=== PATIENT | female | born 1950 | race Asian ===

== ENCOUNTER → 2019-08-27 | Outpatient (REF) | payer MEDICAID ==
[2019-08-27 12:48] LABS: BASO % 0.8 % (0.0-1.0); EOS # 0.1 10^3/uL (0.0-0.5); EOS % 1.9 % (0.0-3.0); HEMOGLOBIN 12.1 g/dl (12.0-15.5); LYMPH # 1.8 10^3/uL (1.5-5.0); LYMPH % 48.1 % (24.0-44.0); MEAN CORPUSCULAR HEMOGLOBIN 31.8 pg (27.0-33.0); MEAN CORPUSCULAR HGB CONC 31.8 g/dl (32.0-36.5); MEAN CORPUSCULAR VOLUME 99.7 fl (80.0-96.0); MONO # 0.2 10^3/uL (0.0-0.8); MONO % 5.5 % (0.0-5.0); NEUTROPHILS # 1.6 10^3/uL (1.5-8.5); NEUTROPHILS % 43.4 % (36.0-66.0); PLATELET COUNT, AUTOMATED 130 10^3/uL (150-450); RED BLOOD COUNT 3.81 10^6/uL (4.00-5.40); WHITE BLOOD COUNT 3.6 10^3/uL (4.0-10.0)
[2019-08-27 13:00] LABS: ALT/SGPT 27 U/L (12-78); BILIRUBIN,TOTAL 0.5 MG/DL (0.2-1.0); BLOOD UREA NITROGEN 19 MG/DL (7-18); CALCIUM LEVEL 9.1 MG/DL (8.8-10.2); CARBON DIOXIDE LEVEL 31 MEQ/L (21-32); CHLORIDE LEVEL 109 MEQ/L (98-107); CHOLESTEROL LEVEL 240 MG/DL (<200); CHOLESTEROL RISK RATIO 2.727 (<5); CREATININE FOR GFR 0.86 MG/DL (0.55-1.30); FREE T4 0.96 NG/DL (0.76-1.46); GLOMERULAR FILTRATION RATE > 60.0 (>39); GLUCOSE, FASTING 82 MG/DL (70-100); HDL CHOLESTEROL 88 MG/DL (>40); LDL CHOLESTEROL 134 MG/DL (<100); NON-HDL-C 152 MG/DL; POTASSIUM SERUM 4.1 MEQ/L (3.5-5.1); SODIUM LEVEL 143 MEQ/L (136-145); TOTAL PROTEIN 7.5 GM/DL (6.4-8.2); TRIGLYCERIDES LEVEL 92 MG/DL (<150)
[2019-08-27 13:04] LABS: TOTAL 25(OH) VITAMIN D 48.9 NG/ML (30.0-100.0)
[2019-08-27 13:46] LABS: HEMOGLOBIN A1c 5.5 %
== END ==
LOC: M LAB REF 12:16
PROVIDERS: ATTEND Family Medicine
DX: Z13.228 Encounter for screening for other metabolic disorders (principal); Z13.820 Encounter for screening for osteoporosis; Z12.39 Encounter for other screening for malignant neoplasm of breast; M25.50 Pain in unspecified joint; R53.83 Other fatigue

== ENCOUNTER → 2019-09-17 | Outpatient (CLI) | payer MEDICAID ==
--- NOTE | 2019-09-17 09:24 | REP ---
Clinical: Given history of gallbladder polyp. Technique: Real time elena scale ultrasound examination using curved array transducer. Findings: Liver demonstrates coarsened echotexture with multiple scattered relatively simple appearing cysts measuring up to 2.0 cm in the left lobe. Pancreas is normal in appearance and echotexture. The right kidney is normal in reniform shape without hydronephrosis and measures 9.8 x 4.8 x 3.4 cm. Visualized abdominal aorta normal. No ascites in the visualized right upper quadrant. Impression: 1. 3.2 mm gallbladder polyp. 2. Findings to suggest hepatocellular disease with scattered primarily simple cysts. A single cyst in the left lobe measuring 2.0 cm demonstrates subtle septation and mural nodularity. 3. Above findings may warrant 6 - 9 month follow-up examination to establish baseline as no prior examinations are available for comparison. Electronically Signed by Tereso Zambrano MD 09/17/2019 09:15 A
== END ==
LOC: M RAD 08:33
PROVIDERS: ATTEND Family Medicine
DX: K82.4 Cholesterolosis of gallbladder (principal); K76.89 Other specified diseases of liver

== ENCOUNTER → 2019-10-03 | Outpatient (CLI) | payer MEDICAID ==
[~2019-10-03] MED LIST: MULTTAB86 PO
--- NOTE | 2019-10-10 13:52 | REPMRS ---
Patient History The patient states she has not had a clinical breast exam in over a year. Patient is postmenopausal. No known family history of cancer. Benign excisional biopsy of the left breast, 1985. No Hormone Replacement Therapy Digital Woman Screen Mammo: October 03, 2019 - Exam #: [id number] Bilateral CC and MLO view(s) were taken. Technologist: Zoya Martell, Technologist Prior study comparison: November 03, 2014, bilateral digital woman screen mammo, performed at [facility]. FINDINGS: The breast tissue is heterogeneously dense. This may lower the sensitivity of mammography. There is a moderate amount of heterogeneously dense fibroglandular tissue which is fairly symmetric. There is no interval development of dominant mass, architectural distortion, or grouped microcalcification typical of malignancy. There has been no change in the appearance of the mammogram from the prior studies. 3-D tomosynthesis shows no additional findings. Assessment: BI-RADS/ACR category 1 mammogram. Negative Mammogram. Recommendation Routine screening mammogram of both breasts in 1 year (for women over age 40). This patient's Lifetime Breast Cancer RIsk is estimated at 5.7 %. This mammogram was interpreted with the aid of an FDA-approved computer-aided dectection system. Electronically Signed By: Jeovany Alford MD 10/10/19 [id number]
--- NOTE | 2019-10-16 13:43 | DEXA ---
AP SPINE L1 - L4 0.773 -3.4 -1.7 LT FEMUR TOTAL 0.924 -0.7 0.8 LT NECK 0.847 -1.4 0.3 RT FEMUR TOTAL 0.859 -1.2 0.3 RT NECK 0.879 -1.1 0.5 TOTAL BODY TOTAL OTHER COMMENTS: There is low bone density of the hips. There is osteoporosis of the spine. The density of the spine has increased 3.8% since 12/11/2014. The density of the left hip has increased 13.1% since 12/11/2014. The density of the right hip has increased 7.9% since 12/11/2014. The increased density of the spine does represent a significant change. The increased density of the left hip does represent a signature change. The increased density of the right hip does represent a signature change. FOLLOW-UP: Recommendation for the next bone density exam: 2 years. GUDELIA
== END ==
LOC: M WHC 14:57 → EDUNIT# 15:00
PROVIDERS: ATTEND Family Medicine
DX: Z12.31 Encounter for screening mammogram for malignant neoplasm of breast (principal); M81.0 Age-related osteoporosis without current pathological fracture; M85.851 Other specified disorders of bone density and structure, right thigh; M85.852 Other specified disorders of bone density and structure, left thigh; M85.88 Other specified disorders of bone density and structure, other site

== ENCOUNTER 2019-10-13 10:09 | Day surgery (SDC) | payer MEDICAID ==
[~2019-10-13] VITALS: Ht 162.6 cm; Wt 49.9 kg
[~2019-10-13 10:09] MED LIST changes: +LIDOCAINE 2% INJ 100 MG/5 ML SDV (FOR ANES.) As Ordered ONE; +NS 1,000 ML IV ONE; +PROPOFOL 200 MG/20 ML VIAL As Ordered ONE
--- NOTE | 2019-10-13 12:44 | ROOR ---
Patient Name: Donovan Smith Procedure Date: 10/13/2019 11:44 AM Date of : 1950 Age: 69 Room: [facility] Gender: Female Note Status: Finalized Procedure: Upper GI endoscopy Indications: Dyspepsia, Dysphagia, Heartburn Providers: Pineda Griffith MD Referring MD: Kong MCKINNON MD Requesting Provider: Medicines: Monitored Anesthesia Care Complications: No immediate complications. Procedure: Pre-Anesthesia Assessment: - Prior to the procedure, a History and Physical was performed, and patient medications and allergies were reviewed. The patient is competent. The risks and benefits of the procedure and the sedation options and risks were discussed with the patient. All questions were answered and informed consent was obtained. Patient identification and proposed procedure were verified by the physician, the nurse and the anesthesiologist in the procedure room. Mental Status Examination: alert and oriented. Airway Examination: normal oropharyngeal airway and neck mobility. Respiratory Examination: clear to auscultation. CV Examination: normal. Prophylactic Antibiotics: The patient does not require prophylactic antibiotics. Prior Anticoagulants: The patient has taken no previous anticoagulant or antiplatelet agents. ASA Grade Assessment: II - A patient with mild systemic disease. After reviewing the risks and benefits, the patient was deemed in satisfactory condition to undergo the procedure. The anesthesia plan was to use monitored anesthesia care (MAC). Immediately prior to administration of medications, the patient was re-assessed for adequacy to receive sedatives. The heart rate, respiratory rate, oxygen saturations, blood pressure, adequacy of pulmonary ventilation, and response to care were monitored throughout the procedure. The physical status of the patient was re-assessed after the procedure. The Endoscope was introduced through the mouth, and advanced to the second part of duodenum. The upper GI endoscopy was accomplished without difficulty. The patient tolerated the procedure well. Findings: The examined esophagus was normal. Biopsies were obtained from the proximal and distal esophagus with cold forceps for histology of suspected eosinophilic esophagitis. Verification of patient identification for the specimen was done by the physician and nurse using the patient's name, date and medical record number. The Z-line was regular and was found 39 cm from the incisors. Scattered mild inflammation characterized by erythema and granularity was found in the gastric antrum and at the pylorus. Biopsies were taken with a cold forceps for Helicobacter pylori testing. The duodenal bulb and second portion of the duodenum were normal. Biopsies for histology were taken with a cold forceps for evaluation of celiac disease. Impression: - Normal esophagus. Biopsied. - Z-line regular, 39 cm from the incisors. - Gastritis. Biopsied. - Normal duodenal bulb and second portion of the duodenum. Biopsied. Recommendation: - Patient has a contact number available for emergencies. The signs and symptoms of potential delayed complications were discussed with the patient. Return to normal activities tomorrow. Written discharge instructions were provided to the patient. - High fiber diet. - Continue present medications. - Follow an antireflux regimen. - Await pathology results. - Telephone GI clinic for pathology results in 2 weeks. - Return to primary care physician. Pineda Griffith MD Pineda Griffith MD 10/13/2019 12:44:29 PM Electronically signed by Pineda Griffith MD Number of Addenda: 0 Note Initiated On: 10/13/2019 11:44 AM Estimated Blood Loss: Estimated blood loss was minimal.
--- NOTE | 2019-10-13 13:07 | ROOR ---
Patient Name: Donovan Smith Procedure Date: 10/13/2019 11:45 AM Date of : 1950 Age: 69 Room: [facility] Gender: Female Note Status: Finalized Procedure: Colonoscopy Indications: Screening for colorectal malignant neoplasm Providers: Pineda Griffith MD Referring MD: Kong MCKINNON MD Requesting Provider: Medicines: Monitored Anesthesia Care Complications: No immediate complications. Procedure: Pre-Anesthesia Assessment: - Prior to the procedure, a History and Physical was performed, and patient medications and allergies were reviewed. The patient is competent. The risks and benefits of the procedure and the sedation options and risks were discussed with the patient. All questions were answered and informed consent was obtained. Patient identification and proposed procedure were verified by the physician, the nurse and the anesthesiologist in the procedure room. Mental Status Examination: alert and oriented. Airway Examination: normal oropharyngeal airway and neck mobility. Respiratory Examination: clear to auscultation. CV Examination: normal. Prophylactic Antibiotics: The patient does not require prophylactic antibiotics. Prior Anticoagulants: The patient has taken no previous anticoagulant or antiplatelet agents. ASA Grade Assessment: II - A patient with mild systemic disease. After reviewing the risks and benefits, the patient was deemed in satisfactory condition to undergo the procedure. The anesthesia plan was to use monitored anesthesia care (MAC). Immediately prior to administration of medications, the patient was re-assessed for adequacy to receive sedatives. The heart rate, respiratory rate, oxygen saturations, blood pressure, adequacy of pulmonary ventilation, and response to care were monitored throughout the procedure. The physical status of the patient was re-assessed after the procedure. The Colonoscope was introduced through the anus and advanced to the terminal ileum, with identification of the appendiceal orifice and IC valve. The colonoscopy was performed without difficulty. The patient tolerated the procedure well. The quality of the bowel preparation was good. The terminal ileum, ileocecal valve, appendiceal orifice, and rectum were photographed. Scope insertion time was 3 minutes. Scope withdrawal time was 9 minutes. The total duration of the procedure was 14 minutes. Findings: The perianal and digital rectal examinations were normal. The terminal ileum appeared normal. Multiple sessile and semi-pedunculated polyps were found in the recto-sigmoid colon, transverse colon, ascending colon and cecum. The polyps were 6 to 12 mm in size. These polyps were removed with a cold snare. Resection and retrieval were complete. Verification of patient identification for the specimen was done by the physician and nurse using the patient's name, date and medical record number. Estimated blood loss was minimal. A few small-mouthed diverticula were found in the sigmoid colon. There was no evidence of diverticular bleeding. Non-bleeding external and internal hemorrhoids were found during retroflexion. The hemorrhoids were medium-sized. Impression: - The examined portion of the ileum was normal. - Multiple 6 to 12 mm polyps at the recto-sigmoid colon, in the transverse colon, in the ascending colon and in the cecum, removed with a cold snare. Resected and retrieved. - Moderate diverticulosis in the sigmoid colon. There was no evidence of diverticular bleeding. - Non-bleeding external and internal hemorrhoids. Recommendation: - Patient has a contact number available for emergencies. The signs and symptoms of potential delayed complications were discussed with the patient. Return to normal activities tomorrow. Written discharge instructions were provided to the patient. - Resume previous diet. - High fiber diet. - Continue present medications. - Await pathology results. - Repeat colonoscopy in 1 year for surveillance of multiple polyps. - Telephone GI clinic for pathology results in 2 weeks. - Return to primary care physician. Pineda Griffith MD Pineda Griffith MD 10/13/2019 1:06:41 PM Electronically signed by Pineda Griffith MD Number of Addenda: 0 Note Initiated On: 10/13/2019 11:45 AM Estimated Blood Loss: Estimated blood loss was minimal.
[2019-10-13 13:13] VITALS: BP 127/60
== END 2019-10-13 13:15 | disposition home or self-care (01) ==
LOC: M OPP 10:09
PROVIDERS: ATTEND Internal Medicine Gastroenterology
DX: Z12.11 Encounter for screening for malignant neoplasm of colon (principal); K64.8 Other hemorrhoids; D12.7 Benign neoplasm of rectosigmoid junction; D12.3 Benign neoplasm of transverse colon; D12.2 Benign neoplasm of ascending colon; D12.0 Benign neoplasm of cecum; K57.30 Diverticulosis of large intestine without perforation or abscess without bleeding; K29.70 Gastritis, unspecified, without bleeding; R12 Heartburn; R13.10 Dysphagia, unspecified

== ENCOUNTER → 2019-12-18 | Outpatient (REF) | payer MEDICAID ==
[~2019-12-18] MED LIST changes: -LIDOCAINE 2% INJ 100 MG/5 ML SDV (FOR ANES.) As Ordered ONE; -NS 1,000 ML IV ONE; -PROPOFOL 200 MG/20 ML VIAL As Ordered ONE
[2019-12-21 14:29] LABS: H PYLORI STOOL ANTIGEN Negative (Negative)
== END ==
LOC: M LAB REF 13:19
PROVIDERS: ATTEND Physician Assistant Medical
DX: B96.81 Helicobacter pylori [H. pylori] as the cause of diseases classified elsewhere (principal)

== ENCOUNTER → 2019-12-23 | Outpatient (CLI) | payer MEDICAID ==
[~2019-12-23] MED LIST changes: +E-Z-GAS II EFFERVESCENT PACKET (SODIUM BICARB./CITRIC ACID/SIMETHICONE) As Ordered ONE; +E-Z-HD 98% w/w 340GM SUSP BTL As Ordered ONE; +E-Z-PAQUE 96% w/w SUSP 176GM BTL As Ordered ONE
--- NOTE | 2019-12-23 18:01 | REP ---
Upper GI Air Contrast with SBFT The procedure was performed by JARVIS Luna, under the the direct supervision of [ ]. The images were reviewed with [ ]. The lace winder film shows no organomegaly or pathological masses. The intestinal gas pattern appears normal. Liquid barium and gas producing crystals were given in the erect position as well as liquid barium in the prone position in order to perform a double contrast upper GI examination. The oral and pharyngeal stages of deglutition demonstrated flash laryngeal penetration. Esophageal transport is efficient and there is no esophagitis, stricture, or mucosal ring noted. However a filling defect is visualized, this could be extrinsic or mural, and could represent a mediastinal mass or an esophageal leiomyoma. The CT of the chest with contrast is recommended. There is no hiatal hernia. Gastroesophageal reflux was visualized to the level of the corinne. The stomach stewart are normally outlined. The rugal folds are smooth and regular. There is no gastritis, neoplasm, or ulcer disease noted. The duodenal stewart are normally outlined. The mucosal folds are smooth and regular. There is no duodenitis, peptic ulcer disease, or neoplasm noted. The visualized portion of the proximal small bowel appears normal in course and caliber. The barium column was followed through the small bowel to the level of the terminal ileum. Small bowel transit time was approximately 90 minutes. During fluoroscopy gentle palpation shows all loops are freely mobile and pliable. There are no fixed or angulated loops. The small bowel mucosal pattern is normal in course and caliber. There is no transition to set suggest a partial small-bowel obstruction. Spot filming of the terminal ileum shows it to be unremarkable. Impression: 1. Flash laryngeal penetration. 2. A filling defect in the esophagus is visualized , this could be extrinsic or mural, and could represent a mediastinal mass or an esophageal leiomyoma. The CT of the chest with contrast is recommended. 3. Gastroesophageal reflux to the level of the corinne. 0.4 minutes of fluoroscopy time was utilized for this procedure. Some fluoroscopic images are performed with last image hold technology. These images require no additional radiation. Reviewed by JARVIS Morse 12/23/2019 12:32 P Electronically Signed by Jaycob Alford MD 12/23/2019 05:51 P
== END ==
LOC: M RAD 09:04
PROVIDERS: ATTEND Surgery
DX: R13.10 Dysphagia, unspecified (principal); R10.84 Generalized abdominal pain; K21.9 Gastro-esophageal reflux disease without esophagitis; K22.8 Other specified diseases of esophagus

== ENCOUNTER → 2020-01-14 | Outpatient (CLI) | payer MEDICAID ==
[~2020-01-14] MED LIST changes: -E-Z-GAS II EFFERVESCENT PACKET (SODIUM BICARB./CITRIC ACID/SIMETHICONE) As Ordered ONE; -E-Z-HD 98% w/w 340GM SUSP BTL As Ordered ONE; -E-Z-PAQUE 96% w/w SUSP 176GM BTL As Ordered ONE
[2020-01-14 12:08] LABS: BLOOD UREA NITROGEN 24 MG/DL (7-18); GLOMERULAR FILTRATION RATE > 60.0 (>39)
== END ==
LOC: M LAB 11:23
PROVIDERS: ATTEND Physician Assistant Medical
DX: R93.3 Abnormal findings on diagnostic imaging of other parts of digestive tract (principal)

== ENCOUNTER → 2020-01-16 | Outpatient (CLI) | payer MEDICAID ==
[~2020-01-16] MED LIST changes: +GASTROGRAFIN SOLUTION 30ML (Q9963) As Ordered ONE; +ISOVUE-370 76% 100ML VIAL (Q9967) As Ordered ONE
--- NOTE | 2020-01-16 15:50 | REP ---
CT chest with contrast: History: Abnormal findings on diagnostic imaging. Comparison upper GI series December 23, 2019 showed evidence of extrinsic indentation of the anterior wall of the esophagus below the level of the corinne, question mural or extrinsic lesion of the esophagus. CT contrast dose: 100 mL of intravenous Isovue [address] findings: There is excellent opacification of the mediastinal vasculature. There is no CT evidence of pulmonary embolism, aortic dissection, or aneurysm. The esophageal stewart are smooth and thin throughout the CT study. Only normal appearing left atrium and left main pulmonary vein abut the anterior wall of the esophagus at the level where the esophagram films showed possible extrinsic defect. There is no evidence of esophageal lesion on CT. There is some vascular calcification of the posterior aortic knob. No pleural or pericardial effusion is seen. There is a small tracheal diverticulum noted incidentally at the level of the thoracic inlet. These are most often asymptomatic. The lung jones are free of infiltrate. No pulmonary mass lesion is seen. No significant pulmonary nodule is appreciated. No bony destructive lesion is seen. Impression: No active cardiopulmonary disease. There is no CT evidence of esophageal lesion. The indentation seen on the esophagram is felt to be due to adjacent normal vascular structures in the mediastinum. Electronically Signed by Jaycob Alford MD 01/16/2020 05:44 P
--- NOTE | 2020-01-16 15:54 | REP ---
CT ABDOMEN WITH IV AND ORAL CONTRAST: HISTORY: Abnormal findings on diagnostic imaging. Comparison upper GI series December 23, 2019. CT CONTRAST DOSE: 100 mL of intravenous Isovue [address] FINDINGS: There is no evidence of pleural effusion or upper abdominal ascites. There are multiple cysts dispersed in the liver. The largest of these measures 1.8 cm in greatest diameter. No focal liver mass lesion is seen. Spleen is unremarkable. The gastroesophageal junction is unremarkable. No abnormality is noted in the stomach. No adrenal lesion is seen. The kidneys enhance symmetrically and appear morphologically intact. Normal caliber aorta is seen. No pancreatic abnormality is observed. Small and large intestinal bowel loops are unremarkable. No bony destructive lesion. IMPRESSION: Multiple small simple cysts in the liver. No acute abnormality. Electronically Signed by Jaycob Alford MD 01/16/2020 05:44 P
== END ==
LOC: M RAD 12:54
PROVIDERS: ATTEND Internal Medicine Gastroenterology
DX: R93.3 Abnormal findings on diagnostic imaging of other parts of digestive tract (principal); K76.89 Other specified diseases of liver
CPT/HCPCS: 71260; 74160; Q9963; Q9967

== ENCOUNTER → 2020-07-23 | Outpatient (REF) | payer MEDICAID ==
[~2020-07-23] MED LIST changes: -GASTROGRAFIN SOLUTION 30ML (Q9963) As Ordered ONE; -ISOVUE-370 76% 100ML VIAL (Q9967) As Ordered ONE
[2020-07-23 18:03] LABS: ALBUMIN 3.9 GM/DL (3.2-5.2); ALT/SGPT 38 U/L (12-78); BILIRUBIN,TOTAL 0.5 MG/DL (0.2-1.0); BLOOD UREA NITROGEN 22 MG/DL (7-18); CALCIUM LEVEL 9.1 MG/DL (8.8-10.2); CARBON DIOXIDE LEVEL 31 MEQ/L (21-32); CHLORIDE LEVEL 105 MEQ/L (98-107); CHOLESTEROL LEVEL 248 MG/DL (<200); CHOLESTEROL RISK RATIO 2.666 (<5); CREATININE FOR GFR 0.89 MG/DL (0.55-1.30); GLOMERULAR FILTRATION RATE > 60.0 (>39); GLUCOSE, FASTING 84 MG/DL (70-100); HDL CHOLESTEROL 93 MG/DL (>40); LDL CHOLESTEROL 140 MG/DL (<100); NON-HDL-C 155 MG/DL; POTASSIUM SERUM 4.4 MEQ/L (3.5-5.1); SODIUM LEVEL 140 MEQ/L (136-145); TOTAL PROTEIN 7.5 GM/DL (6.4-8.2); TRIGLYCERIDES LEVEL 74 MG/DL (<150)
[2020-07-23 18:41] LABS: HEMOGLOBIN A1c 5.5 %
== END ==
LOC: M LAB REF 17:11
PROVIDERS: ATTEND Family Medicine Addiction Medicine
DX: R73.03 Prediabetes (principal); E03.8 Other specified hypothyroidism

== ENCOUNTER → 2020-08-11 | Outpatient (CLI) | payer OTHER ==
--- NOTE | 2020-08-11 10:06 | REP ---
INDICATION: LIVER CYST, POLYP OF GALLBLADDER COMPARISON: Ultrasound dated 09/17/2019, and CT dated 01/16/2020 TECHNIQUE: Real time elena scale ultrasound examination using curved array transducer. FINDINGS: Liver demonstrates 1.4 cm left lobe simple cyst along with 2.1 cm and 1.3 cm right lobe simple cysts essentially corresponding and confirming findings on prior CT. The pancreas is normal in appearance. The gallbladder again demonstrates 3 mm benign appearing polyp without gallstones, wall thickening, or pericholecystic fluid. No biliary ductal dilatation is appreciated and the common bile duct measures 3.0 mm diameter. Right kidney is normal in reniform shape without hydronephrosis and measures 9.8 x 4.4 x 3.0 cm. No ascites in the visualized right upper quadrant. IMPRESSION: 1. Relatively stable hepatic cysts. 2. Stable 3 mm benign-appearing gallbladder polyp. <Electronically signed by Tereso Zambrano > 08/11/20 [id number]
== END ==
LOC: M RAD 09:21
PROVIDERS: ATTEND Family Medicine Addiction Medicine
DX: K82.4 Cholesterolosis of gallbladder (principal); K76.89 Other specified diseases of liver

== ENCOUNTER → 2020-09-30 | Outpatient (CLI) | payer OTHER ==
--- NOTE | 2020-09-30 15:35 | REPMRS ---
Patient History The patient states she has not had a clinical breast exam in over a year. No known family history of cancer. Benign excisional biopsy of the left breast, 1985. No Hormone Replacement Therapy Digital Woman Screen Mammo: September 30, 2020 - Exam #: [id number] Bilateral CC and MLO view(s) were taken. Technologist: Mackenzie Riojas, Technologist Prior study comparison: October 03, 2019, bilateral digital woman screen mammo performed at [facility]. November 03, 2014, bilateral digital woman screen mammo, performed at [facility]. FINDINGS: The breast tissue is extremely dense which could obscure a lesion on mammography. The Volpara volumetric breast density category is: D. There is an extremely dense symmetrical pattern of residual fibroglandular tissue. There has been no change in the appearance of the mammogram from the previous studies. There is no interval development of dominant mass, archetectural distortion, or grouped microcalcifications suggestive of malignancy. 3-D tomosynthesis shows no additional findings. Assessment: BI-RADS/ACR category 1 mammogram. Negative Mammogram. Recommendation Routine screening mammogram of both breasts in 1 year (for women over age 40). This patient's [facility] Lifetime Breast Cancer RIsk is estimated at 5.3 %. This mammogram was interpreted with the aid of an FDA-approved computer-aided dectection system. Electronically Signed By: Jeovany Alford MD 09/30/20 [id number]
== END ==
LOC: M WHC 13:31
PROVIDERS: ATTEND Family Medicine Addiction Medicine
DX: Z12.31 Encounter for screening mammogram for malignant neoplasm of breast (principal)

== ENCOUNTER → 2020-12-05 | Outpatient (CLI) | payer OTHER ==
[~2020-12-05] MED LIST changes: +FOSA70TA PO; +THERTAB52 PO
== END ==
LOC: M LABSMTC 08:11
PROVIDERS: ATTEND Anesthesiology
DX: Z01.812 Encounter for preprocedural laboratory examination (principal); Z20.822 Contact with and (suspected) exposure to COVID-19

== ENCOUNTER 2020-12-10 08:45 | Day surgery (SDC) | payer OTHER ==
[~2020-12-10] VITALS: Ht 154.9 cm; Wt 49.4 kg
[~2020-12-10 08:45] MED LIST changes: +NS 1,000 ML IV ONE
[2020-12-10] MEDS ORDERED: propofoL 200 MG/20 ML VIAL As Ordered ONE (09:18)
[2020-12-10] MEDS ORDERED: fentaNYL 100 MCG/2 ML INJECTION (J3010) As Ordered ONE (09:18)
[2020-12-10] MEDS ORDERED: LIDOCAINE 2% 100MG/5ML SDV (FOR ANES.) As Ordered ONE (09:19)
[2020-12-10] MEDS ORDERED: ePHEDrine SULFATE 25 MG/5 ML(5MG/ML) SYRINGE As Ordered ONE (10:45)
--- NOTE | 2020-12-10 11:38 | ROOR ---
Patient Name: Donovan Smith Procedure Date: 12/10/2020 10:31 AM Date of : 1950 Age: 70 Room: [facility] Gender: Female Note Status: Finalized Procedure: Upper GI endoscopy Indications: Dyspepsia, Previously treated for Helicobacter pylori Providers: Pineda Griffith MD Referring MD: Kong MCKINNON MD Requesting Provider: Medicines: Monitored Anesthesia Care Complications: No immediate complications. Procedure: Pre-Anesthesia Assessment: - Prior to the procedure, a History and Physical was performed, and patient medications and allergies were reviewed. The patient is competent. The risks and benefits of the procedure and the sedation options and risks were discussed with the patient. All questions were answered and informed consent was obtained. Patient identification and proposed procedure were verified by the physician, the nurse and the anesthesiologist in the procedure room. Mental Status Examination: alert and oriented. Airway Examination: normal oropharyngeal airway and neck mobility. Respiratory Examination: clear to auscultation. CV Examination: normal. Prophylactic Antibiotics: The patient does not require prophylactic antibiotics. Prior Anticoagulants: The patient has taken no previous anticoagulant or antiplatelet agents. ASA Grade Assessment: III - A patient with severe systemic disease. After reviewing the risks and benefits, the patient was deemed in satisfactory condition to undergo the procedure. The anesthesia plan was to use monitored anesthesia care (MAC). Immediately prior to administration of medications, the patient was re-assessed for adequacy to receive sedatives. The heart rate, respiratory rate, oxygen saturations, blood pressure, adequacy of pulmonary ventilation, and response to care were monitored throughout the procedure. The physical status of the patient was re-assessed after the procedure. The Endoscope was introduced through the mouth, and advanced to the second part of duodenum. The upper GI endoscopy was accomplished without difficulty. The patient tolerated the procedure well. Findings: The examined esophagus was normal. Scattered mild inflammation characterized by erythema and granularity was found in the gastric antrum. Biopsies were taken with a cold forceps for Helicobacter pylori testing. Verification of patient identification for the specimen was done by the physician and nurse using the patient's name, date and medical record number. Estimated blood loss was minimal. The duodenal bulb and second portion of the duodenum were normal. Impression: - Normal esophagus. - Gastritis. Biopsied. - Normal duodenal bulb and second portion of the duodenum. Recommendation: - Patient has a contact number available for emergencies. The signs and symptoms of potential delayed complications were discussed with the patient. Return to normal activities tomorrow. Written discharge instructions were provided to the patient. - High fiber diet. - Continue present medications. - Await pathology results. - Follow an antireflux regimen. - Telephone GI clinic for pathology results in 2 weeks. - Return to primary care physician. Procedure Code(s): --- Professional --- 89110, Esophagogastroduodenoscopy, flexible, transoral; with biopsy, single or multiple Diagnosis Code(s): --- Professional --- K29.70, Gastritis, unspecified, without bleeding R10.13, Epigastric pain CPT copyright 2019 [employer] [employer]. All rights reserved. The codes documented in this report are preliminary and upon medical records coder review may be revised to meet current compliance requirements. Pineda Griffith MD Pineda Griffith MD 12/10/2020 11:37:48 AM Electronically signed by Pineda Griffith MD Number of Addenda: 0 Note Initiated On: 12/10/2020 10:31 AM Estimated Blood Loss: Estimated blood loss was minimal.
--- NOTE | 2020-12-10 11:41 | ROOR ---
Patient Name: Donovan Smith Procedure Date: 12/10/2020 10:33 AM Date of : 1950 Age: 70 Room: [facility] Gender: Female Note Status: Finalized Procedure: Colonoscopy Indications: High risk colon cancer surveillance: Personal history of colonic polyps Providers: Pineda Griffith MD Referring MD: Kong MCKINNON MD Requesting Provider: Medicines: Monitored Anesthesia Care Complications: No immediate complications. Procedure: Pre-Anesthesia Assessment: - Prior to the procedure, a History and Physical was performed, and patient medications and allergies were reviewed. The patient is competent. The risks and benefits of the procedure and the sedation options and risks were discussed with the patient. All questions were answered and informed consent was obtained. Patient identification and proposed procedure were verified by the physician, the nurse and the anesthesiologist in the procedure room. Mental Status Examination: alert and oriented. Airway Examination: normal oropharyngeal airway and neck mobility. Respiratory Examination: clear to auscultation. Prophylactic Antibiotics: The patient does not require prophylactic antibiotics. Prior Anticoagulants: The patient has taken no previous anticoagulant or antiplatelet agents. ASA Grade Assessment: II - A patient with mild systemic disease. After reviewing the risks and benefits, the patient was deemed in satisfactory condition to undergo the procedure. The anesthesia plan was to use monitored anesthesia care (MAC). Immediately prior to administration of medications, the patient was re-assessed for adequacy to receive sedatives. The heart rate, respiratory rate, oxygen saturations, blood pressure, adequacy of pulmonary ventilation, and response to care were monitored throughout the procedure. The physical status of the patient was re-assessed after the procedure. The Colonoscope was introduced through the anus and advanced to the terminal ileum, with identification of the appendiceal orifice and IC valve. The colonoscopy was performed without difficulty. The patient tolerated the procedure well. The quality of the bowel preparation was good. The terminal ileum, ileocecal valve, appendiceal orifice, and rectum were photographed. Scope insertion time was 2 minutes. Scope withdrawal time was 10 minutes. The total duration of the procedure was 12 minutes. Findings: The perianal and digital rectal examinations were normal. The terminal ileum appeared normal. Two sessile polyps were found in the descending colon and ascending colon. The polyps were 5 to 10 mm in size. These polyps were removed with a hot snare. Resection and retrieval were complete. Verification of patient identification for the specimen was done by the physician and nurse using the patient's name, date and medical record number. Estimated blood loss was minimal. External and internal hemorrhoids were found during retroflexion. The hemorrhoids were small. Impression: - The examined portion of the ileum was normal. - Two 5 to 10 mm polyps in the descending colon and in the ascending colon, removed with a hot snare. Resected and retrieved. - External and internal hemorrhoids. Recommendation: - Patient has a contact number available for emergencies. The signs and symptoms of potential delayed complications were discussed with the patient. Return to normal activities tomorrow. Written discharge instructions were provided to the patient. - High fiber diet. - Continue present medications. - Use fiber, for example Citrucel, Fibercon, Konsyl or Metamucil. - Await pathology results. - Repeat colonoscopy in 3 - 5 years for surveillance based on pathology results. - Telephone GI clinic for pathology results in 2 weeks. - Return to primary care physician. Procedure Code(s): --- Professional --- 59146, Colonoscopy, flexible; with removal of tumor(s), polyp(s), or other lesion(s) by snare technique Diagnosis Code(s): --- Professional --- Z86.010, Personal history of colonic polyps K64.8, Other hemorrhoids K63.5, Polyp of colon CPT copyright 2019 [employer]. All rights reserved. The codes documented in this report are preliminary and upon cpc coder review may be revised to meet current compliance requirements. Pineda Griffith MD Pineda Griffith MD 12/10/2020 11:40:39 AM Electronically signed by Pineda Griffith MD Number of Addenda: 0 Note Initiated On: 12/10/2020 10:33 AM Estimated Blood Loss: Estimated blood loss was minimal.
[2020-12-10 11:50] VITALS: BP 121/57
== END 2020-12-10 11:52 | disposition home or self-care (01) ==
LOC: M OPP 08:45
PROVIDERS: ATTEND Internal Medicine Gastroenterology
DX: Z12.11 Encounter for screening for malignant neoplasm of colon (principal); Z86.010 Personal history of colon polyps; R10.13 Epigastric pain; D12.6 Benign neoplasm of colon, unspecified; K64.8 Other hemorrhoids; D13.1 Benign neoplasm of stomach; K29.70 Gastritis, unspecified, without bleeding; E78.5 Hyperlipidemia, unspecified; M81.0 Age-related osteoporosis without current pathological fracture; Z79.899 Other long term (current) drug therapy; Z86.19 Personal history of other infectious and parasitic diseases
CPT/HCPCS: 43239; 45385; 88305; 88342; J3010

== ENCOUNTER 2021-03-07 10:36 | Emergency (ER) | payer OTHER ==
[~2021-03-07] VITALS: Ht 160 cm; Wt 50.9 kg
[~2021-03-07 10:36] MED LIST changes: -NS 1,000 ML IV ONE
--- NOTE | 2021-03-07 11:17 | REP ---
INDICATION: r/o cva. COMPARISON: None. TECHNIQUE: Helical scanning is acquired. 5 mm axial images were reformatted. Coronal MPR images were generated. FINDINGS: Bone window settings demonstrate an intact bony calvarium. There is no evidence of skull fracture or incidental bony calvarial lesion. The visualized paranasal sinuses appear clear. No intraorbital abnormality is seen. On soft tissue window setting images; the lateral, third, and fourth ventricles are normal in size and position. Santillan-white differentiation pattern is normal above and below the tentorium. There are is no evidence of intracranial hemorrhage. No mass, edema, infarction, or midline shift is seen. No extra-axial fluid collection is appreciated. There is minimal vascular calcification noted at the skull base. IMPRESSION: Minimal vascular calcification. Otherwise negative noncontrast head CT.. <Electronically signed by Jeovany Alford > 03/07/21 1525
--- NOTE | 2021-03-07 11:35 | REP ---
INDICATION: CVA. COMPARISON: CT 01/16/2020. TECHNIQUE: Single portable AP view of the chest was performed. FINDINGS: There is no acute infiltrate or pulmonary edema. Lungs are clear. The heart is not significantly enlarged. The mediastinal silhouette is unremarkable except for calcification of the thoracic aorta. The visualized osseous structures are intact. IMPRESSION: No acute pulmonary disease. <Electronically signed by Abebe Santillan > 03/07/21 [id number]
[2021-03-07] MEDS ORDERED: ISOVUE-370 76% 100ML VIAL As Ordered ONE (11:37)
[2021-03-07 11:39] LABS: BASO % 0.4 % (0.0-1.0); EOS % 0.9 % (0.0-3.0); HEMATOCRIT 38.8 % (36.0-47.0); HEMOGLOBIN 12.2 g/dl (12.0-15.5); LYMPH # 1.6 10^3/uL (1.5-5.0); LYMPH % 35.8 % (24.0-44.0); MEAN CORPUSCULAR HEMOGLOBIN 30.6 pg (27.0-33.0); MEAN CORPUSCULAR HGB CONC 31.4 g/dl (32.0-36.5); MEAN CORPUSCULAR VOLUME 97.2 fl (80.0-96.0); MONO # 0.3 10^3/uL (0.0-0.8); MONO % 5.7 % (2.0-8.0); NEUTROPHILS # 2.6 10^3/uL (1.5-8.5); PLATELET COUNT, AUTOMATED 199 10^3/uL (150-450); RED BLOOD COUNT 3.99 10^6/uL (4.00-5.40); WHITE BLOOD COUNT 4.6 10^3/uL (4.0-10.0)
[2021-03-07 12:13] LABS: CK-MB VALUE MASS 1.7 NG/ML (<3.6); CPK CREATINE PHOSPHOKINASE 199 U/L (26-192); MB/CK RELATIVE INDEX 0.85 (< OR =4); TROPONIN I < 0.02 NG/ML (< 0.10)
--- NOTE | 2021-03-07 12:42 | REP ---
INDICATION: CVA - Nursing interventions must not delay CT. COMPARISON: None. TECHNIQUE: CT contrast dose: 100 ml of intravenous Isovue 370. CT technique: Helical scanning is acquired. 2 mm axial images are reformatted. Maximal intensity projection and multiplanar re-formation images are generated along with 3-D surface rendered color imaging which is viewed rotational. FINDINGS: There is good opacification of the arterial tray. The distal vertebral arteries are patent, left is smaller than the right. Basilar artery is tortuous but widely patent. There is mild atherosclerotic irregularity in the posterior cerebral arteries bilaterally.. There is moderate narrowing of the P2 segments of the posterior cerebral arteries on both sides. Vascular calcification is observed in the distal internal carotid artery on the on each side, left more so than right. No stenosis is seen. Anterior and middle cerebral arteries are intact bilaterally. There is no visible Danae aneurysm or arteriovenous malformation. The dural sinuses are patent. No venous abnormality is appreciated. IMPRESSION: Bilateral atherosclerotic irregularity and moderate narrowing of the posterior cerebral arteries bilaterally, P2 segment. No occlusion seen. No evidence of dietrich aneurysm or arteriovenous malformation. <Electronically signed by Jeovany Alford > 03/07/21 [id number]
--- NOTE | 2021-03-07 12:45 | REP ---
INDICATION: CVA - Nursing interventions must not delay CT COMPARISON: None. TECHNIQUE: Contrast enhancement dose is 100 mL of intravenous Isovue 370. Helical scanning is acquired. 2 mm axial images are re-formatted. Coronal and sagittal MPR images are generated. Coronal and sagittal MIP and oblique MPR images are generated. . FINDINGS: There is good opacification of the arterial tree. The aortic arch contains some calcification but is otherwise intact. Great vessel origins are unremarkable. Vertebral arteries are patent bilaterally right a little larger than left. The distal vertebral arteries are unremarkable. The common carotid arteries are widely patent bilaterally. Carotid bifurcations are free of significant atherosclerotic change. No narrowing or occlusion is seen. The cervical segments of the internal carotid arteries are unremarkable. There is mild vascular calcification in the carotid siphons bilaterally. The lung apices are clear.9 no soft tissue mass or adenopathy is seen in the neck. MIP and MPR images show no additional abnormality. IMPRESSION: Negative CT angiography of the neck with IV contrast. Mild vascular calcification of the carotid siphons. No high-grade stenosis or occlusion seen. <Electronically signed by Jeovany Alford > 03/07/21 [id number]
[2021-03-07 13:30] VITALS: BP 126/60
--- NOTE | 2021-03-07 14:24 | REP ---
INDICATION: left sided numbness, lle wkness x 1 month. COMPARISON: Comparison is made with today's CT study of the brain.. TECHNIQUE: Axial and sagittal imaging planes are utilized for T1 and T2-weighted scans. Sequences include spin-echo, fast spin echo, FLAIR, and diffusion weighted sequences. FINDINGS: No bony calvarial lesion is seen. Craniocervical junction and upper cervical cord are normal in appearance. There is no MR evidence of significant paranasal sinus disease. No intraorbital abnormality is seen. The lateral, third, and fourth ventricles are normal in size and position. Santillan-white differentiation pattern is intact above and below the tentorium. There is no evidence of intracranial hemorrhage. No mass, infarction, extra-axial fluid collection or midline shift is seen. No abnormal white matter lesion is seen. There is some low signal on gradient echo images in the basal ganglia bilaterally corresponding with faint physiologic calcification of the basal ganglia seen on CT. There is no evidence of intracranial hemorrhage. No vascular abnormality is appreciated. There are minimal small vessel changes on FLAIR and turbo spin echo T2 weighted scans in the periventricular and subcortical white matter. IMPRESSION: Minimal small vessel changes. No acute intracranial abnormality.. <Electronically signed by Jeovany Alford > 03/07/21 [id number]
--- NOTE | 2021-03-07 14:26 | REP ---
INDICATION: left sided numbness, lle wkness x 1 month. COMPARISON: None. TECHNIQUE: 3-D [id number] MR angiography of the brain is acquired in the usual fashion and maximal intensity projection images were generated in rotational format about the vertical and horizontal axes. In addition, source axial T1-weighted images are viewed in cine mode. FINDINGS: The distal vertebral arteries are patent and co-dominant. Basilar artery is a little tortuous but widely patent. The posterior cerebral and superior cerebellar vessels are normal and symmetric. The distal internal carotid arteries are unremarkable. Anterior and middle cerebral arteries appear intact. There is no visible dietrich aneurysm or arteriovenous malformation. IMPRESSION: Unremarkable MR angiography the brain. <Electronically signed by Jeovany Alford > 03/07/21 [id number]
[2021-03-07] MEDS ORDERED: ASPIRIN 325 MG TAB PO ONE (14:50)
[2021-03-07] MEDS ORDERED: ASPI-255 PO (14:52)
--- NOTE | 2021-03-07 19:49 | ED PDOC ---
Post-Departure Follow-Up dr gallardo and dr post faxed formal report of cta head for fu Timi Dyer MD March 07, 2021 19:49
--- NOTE | 2021-03-08 05:52 | ECGEPIP ---
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
== END 2021-03-07 15:25 | disposition home or self-care (01) ==
LOC: M ED 10:36
DX: R20.2 Paresthesia of skin (principal); R00.1 Bradycardia, unspecified; I67.2 Cerebral atherosclerosis; R06.02 Shortness of breath; M81.0 Age-related osteoporosis without current pathological fracture; Z79.899 Other long term (current) drug therapy
CPT/HCPCS: 70450; 70496; 70498; 70544; 70551; 71045; 80047; 82550; 82553; 85025; 85730; 87798; 93005; 93041; 94760; 99285; Q9967

== ENCOUNTER → 2021-03-28 | Outpatient (CLI) | payer OTHER ==
[~2021-03-28] MED LIST changes: +ASPI-255 PO
[2021-03-28 12:49] LABS: FOLATE > 24.0 NG/ML; RHEUMATOID FACTOR QUANT < 10.0 IU/ML (<15.0); VITAMIN B12 LEVEL 861 PG/ML
== END ==
LOC: M WUC 10:05
PROVIDERS: ATTEND Psychiatry & Neurology Neurology
DX: R20.0 Anesthesia of skin (principal); M79.602 Pain in left arm; M79.606 Pain in leg, unspecified